=== PATIENT | male | born 1935 | race Caucasian/White ===

== ENCOUNTER → 2018-01-14 | Outpatient (CLI) | payer OTHER | LOC: FIMAGING 19:35 | PROVIDERS: ATTEND Family Medicine Sports Medicine | DX: M48.56XA Collapsed vertebra, not elsewhere classified, lumbar region, initial encounter for fracture (principal); M48.54XA Collapsed vertebra, not elsewhere classified, thoracic region, initial encounter for fracture; M48.061 Spinal stenosis, lumbar region without neurogenic claudication; M51.36 Other intervertebral disc degeneration, lumbar region; M12.88 Other specific arthropathies, not elsewhere classified, other specified site; N28.1 Cyst of kidney, acquired ==

== ENCOUNTER 2018-02-14 11:44 | Day surgery (SDC) | payer OTHER ==
[2018-02-14] MEDS ORDERED: MEPERIDINE 25 MG/ML SYR IVP PRN (13:04)
[2018-02-14] MEDS ORDERED: MIDAZOLAM 2 MG/2 ML VIAL IVP PRN (13:04)
[2018-02-14] MEDS ORDERED: FLUMAZENIL 0.5 MG/5 ML MDV IVP PRN (13:04)
[2018-02-14] MEDS ORDERED: fentaNYL 100 MCG/2 ML INJ IVP PRN (13:04)
[2018-02-14] MEDS ORDERED: NALOXONE HCL 0.4 MG/ML INJ IVP PRN (13:04)
[2018-02-14] MEDS ORDERED: NS 1,000 ML IV SCH (13:15)
--- NOTE | 2018-02-14 13:30 | PDRADPRE ---
Radiology History & Physical Indication for procedure: back pain Home medications: Calcium Carbonate [Oyster Shell Calcium 500 mg (*)] 500 mg PO DAILY 12/18/15 [ Last Taken 02/07/16] Cholecalciferol Vit D3 [Vitamin D3 (*)] 1,000 units PO DAILY 12/18/15 [Last Taken 02/07/16] Levothyroxine Sodium 88 mcg PO SUMOTUWETHFR 12/18/15 [Last Taken 02/07/16] Multivitamins [Multivitamin (*)] 1 each PO DAILY 12/18/15 [Last Taken 02/07/16] Herbals/Supplements -Info Only 1 ea PO DAILY 02/08/16 [Last Taken 02/08/16] Aspirin [Aspirin 81mg (*)] PO BID 02/12/18 [Last Taken Unknown] Cephalexin [CEPHALEXIN] PO DAILY 02/12/18 [Last Taken Unknown] Allergies/Adverse Reactions: fluorouracil [From Efudex] Allergy (Severe, Verified 02/12/18 17:40) EDEMA ON AREA APPLIED, EYES SWOLLEN Iodinated Contrast- Oral and IV Dye [IV Dye, Iodine Containing] Allergy (Severe , Verified 02/12/18 17:40) BODY RASH, ITCHING adhesive [Adhesive] Allergy (Verified 02/12/18 17:40) Rash nafcillin [Nafcillin] Allergy (Verified 02/12/18 17:40) Rash Penicillins Allergy (Verified 02/12/18 17:40) vancomycin Allergy (Verified 02/12/18 17:40) Mental status: A&Ox3 Mallampati Score: Class 1 (ASA 2)
[2018-02-14] MEDS ORDERED: TRIAMCINOLONE ACETONIDE 200 MG/5 ML MDV IM ONE (14:11)
[2018-02-14] MEDS ORDERED: ONDANSETRON 4 MG/2 ML VIAL IVP PRN (14:26)
[2018-02-14] MEDS ORDERED: ACETAMINOPHEN 325 MG TAB PO PRN (14:26)
--- NOTE | 2018-02-14 14:28 | PDRADPN ---
Radiology Procedure Note Date of Procedure: 02/14/18 Radiologist: Giana Villa Anesthesia: IV Sedation Pre-op Diagnosis: back pain Post-op Diagnosis: same Procedure: L3-L4 JUNE Inf/Abcess present in the surg proc area at time of surgery?: No
[2018-02-14] MEDS ORDERED: IOPAMIDOL (ISOVUE-M 300) 15 ML VIAL ONE (14:29)
[2018-02-14] MEDS ORDERED: LIDOCAINE 1% 300 MG/30 ML SDV ONE (14:29)
[2018-02-14 15:33] VITALS: BP 115/72
== END 2018-02-14 15:50 | disposition home or self-care (01) ==
LOC: FIMAGING 11:44
PROVIDERS: ATTEND Radiology Diagnostic Radiology
PROC: 3E0S3BZ Introduction of Anesthetic Agent into Epidural Space, Percutaneous Approach (ICD-10-PCS; principal; 2018-02-14 14:29)
PROC: BR191ZZ Fluoroscopy of Lumbar Spine using Low Osmolar Contrast (ICD-10-PCS; principal; 2018-02-14 14:29)
PROC: 3E0S33Z Introduction of Anti-inflammatory into Epidural Space, Percutaneous Approach (ICD-10-PCS; principal; 2018-02-14 14:29)
DX: M54.16 Radiculopathy, lumbar region (principal); Z91.041 Radiographic dye allergy status
CPT/HCPCS: J2250; J3010; J3301; Q9967

== ENCOUNTER 2018-09-18 11:06 | Day surgery (SDC) | payer OTHER ==
[2018-09-18] MEDS ORDERED: LIDOCAINE 1% 300 MG/30 ML SDV SC ONE (11:18)
--- NOTE | 2018-09-18 11:43 | PDGENHP ---
History & Physical Chief Complaint: ILR at EOL Relevant Physical Exam: s1s2 rrr cta Cardiorespiratory Assessment: for ILR explant
[2018-09-18] MEDS ORDERED: LIDOCAINE 1% 300 MG/30 ML SDV ONE (12:02)
--- NOTE | 2018-09-18 15:44 | EPPROC ---
Electrophysiology Procedure Note: LINQ ILR Explant Anesthesia - local only Using blunt and sharp dissection, under sterile precautions, LINQ monitor was explanted. 2 paige applied. No complications. Patient Problems: Problems Problem Status Onset Bowel obstruction Acute Cecum mass Acute Chest pain Acute
== END 2018-09-18 13:41 | disposition home or self-care (01) ==
LOC: FCATH 11:06
PROVIDERS: ATTEND Internal Medicine Cardiovascular Disease
PROC: 0JPT02Z Removal of Monitoring Device from Trunk Subcutaneous Tissue and Fascia, Open Approach (ICD-10-PCS; principal; 2018-09-18)
DX: I49.3 Ventricular premature depolarization (principal); E03.9 Hypothyroidism, unspecified; I42.9 Cardiomyopathy, unspecified; Z85.038 Personal history of other malignant neoplasm of large intestine; Z92.21 Personal history of antineoplastic chemotherapy; I50.22 Chronic systolic (congestive) heart failure; E78.5 Hyperlipidemia, unspecified; I11.0 Hypertensive heart disease with heart failure; Z79.2 Long term (current) use of antibiotics; J84.9 Interstitial pulmonary disease, unspecified; G47.33 Obstructive sleep apnea (adult) (pediatric); M81.0 Age-related osteoporosis without current pathological fracture; Z96.643 Presence of artificial hip joint, bilateral; Z88.0 Allergy status to penicillin; Z45.09 Encounter for adjustment and management of other cardiac device

== ENCOUNTER 2018-11-24 22:25 | Observation (INO) | payer OTHER ==
--- NOTE | 2018-11-24 22:45 | EDPHY ---
General - History Smoking Status: Never smoked Time Seen by Provider: 11/24/18 22:45 Narrative: CLINICAL IMPRESSION: Abdominal pain, constipation, acute urinary retention ASSESSMENT/PLAN: Patient is an 83-year-old male with a history of heart disease, hypothyroidism, macular degeneration and remote colon cancer status post resection who presents to the emergency department with complaints of constipation, abdominal pain and acute urinary retention. Patient is afebrile, he is uncomfortable appearing however not toxic-appearing. His abdomen was distended with diffuse lower abdominal tenderness to palpation, grimacing however no peritoneal signs. A bladder scan was immediately obtained and revealed 855 cc of retained urine. A Yi catheter was placed with 1000 mL of clear yellow urine. Patient reported moderate improvement of his lower abdominal discomfort after Yi placement however he still remained quite tender on exam. CBC revealed no evidence of leukocytosis, BMP grossly unremarkable. Urinalysis revealed no evidence of urinary tract infection. CT abdomen and pelvis without contrast secondary to underlying dye allergy revealed right hydronephrosis without ureteral stone, prominent stool in the rectum reflecting constipation, no other acute intra- abdominal findings. History of physical examination is consistent with lower abdominal pain, constipation and acute urinary retention which I suspect is secondary to large volume of stool. There were no findings to suggest obstruction, perforation or mass. A soap suds enema was attempted with no stool production. Manual disimpaction was attempted with moderate stool retrieval. A fleets enema was subsequently performed. We are still awaiting affects of fleets enema. Dr. Tellez evaluated this patient, she will resume care of this patient at this time, disposition pending. The patient remained hemodynamically stable, he declined any need for pain medication. DIFFERENTIAL DX: Abdominal pain including but not limited to appendicitis, cholecystitis, gastritis, constipation, bowel obstruction, mass and urinary tract infection. ED PROCEDURES: Manual disimpaction revealed firm stool in the rectal vault. I was able to break up stool and removed quite a bit. A fleets enema was immediately followed. ED COURSE: 2254: Bedside bladder scan revealed 855 cc of retained urine. 2305: A 1000 mL of clear urine. 2358: On repeat examination the patient reports that he is feeling better after Yi catheter placement. He describes his abdominal discomfort as sore in nature, declines any need for pain medication. His abdomen is soft, he is core machine tender with grimacing in the left lower quadrant. 0046: CT results reveal no retroperitoneal lymphadenopathy or free fluid. Bowel is nondilated. Sigmoid colon is redundant, there is prominent stool in the rectum. Findings are most suggestive of prominent stool in rectum reflective of constipation. There is mild right hydronephrosis noted however no stone. I suspect this was secondary to his acute urinary retention. 0155: Patient unable to have a bowel movement with soapsuds. Manual disimpaction revealed firm stool in the rectal vault, I will to break up a firm stool ball in retrieve a moderate amount. Fleets enema immediately to follow. 0240: Dr. Tellez will resume care of this patient at this time. We are still awaiting affects of fleets enema. Disposition still pending. CHIEF COMPLAINT: Abdominal pain, urinary retention and constipation HPI: Patient is an 83-year-old male with a history of heart disease, hypothyroidism, macular degeneration and colon cancer status post resection who presents to the emergency department with constipation, abdominal pain and acute urinary retention. Patient reports intermittent issues with constipation, typically will go 2 days without a bowel movement however then have no issues. He regularly takes stool softeners and MiraLax. Patient reports constipation since last Sunday, that was his last normal and large BM. Since that time the patient has had increased abdominal distention and generalized abdominal discomfort. He reports today acute urinary retention. Patient denies any fever , chest pain or shortness of breath. He has had no nausea or vomiting. He does have a history of bowel obstruction when he was 1st diagnosed with his colon cancer, he has since had a bowel resection. Patient was followed by Dr. Webster, he is currently in remission and has not required any follow-up. Last CT examination was last June with no evidence of recurrence or mets. Patient did have issues with urinary retention during hospital admission however denies any other problems with urinary retention. He denies any urinary symptoms to include dysuria, hematuria or frequency. PMH: Heart disease, hypothyroidism, macular degeneration, remote colon cancer, constipation Pertinent Past Surgical History: Colon resection Social History: Denies cigarette smoking or illicit drug use REVIEW OF SYSTEMS: All other systems negative Constitutional: No fever, no chills, appetite change. Eyes: No discharge, vision change ENT: No sore throat, congestion, ear pain. Cardiovascular: No chest pain, no palpitations. Respiratory: No cough, no shortness of breath. Gastrointestinal: Abdominal pain, abdominal distention. Constipation. Genitourinary: Acute urinary retention. No hematuria, dysuria, flank pain. Musculoskeletal: No back pain, joint swelling, joint pain, myalgias. Skin: No rashes, color change. Neurological: No headache, dizziness, weakness. PHYSICAL EXAM: General Appearance: Alert, uncomfortable appearing however not toxic-appearing. HENT: Normocephalic, atraumatic. Bilateral external ears are normal. Bilateral tympanic membranes are normal with pearly alcantara reflex. Nares are clear, mucosa is pink. Oropharynx is clear, mucosa is mildly dry, uvula is midline. There is no tonsillar enlargement or exudate. Eyes: PERRLA, EOMI. Conjunctiva pink, no pallor or injection. Neck: Supple, nontender, no lymphadenopathy, no midline pain, FROM. Respiratory: There are no retractions, lungs are clear to auscultation. Cardiac: Regular rate and rhythm, no murmurs or gallops. Gastrointestinal: Patient's abdomen is distended, there is a well-healed incision on the right mid abdomen. He has tenderness to palpation in the generalized lower abdomen with grimacing, no guarding or focal peritoneal signs. Bowel sounds are present, there are no masses or hernias appreciated. Neurological: Alert and oriented x 3, CN 2-12 grossly intact, normal gait no ataxia, DTR's intact, normal sensation and strength Skin: Warm, dry, no rashes, no nodules on palpation. Musculoskeletal: Extremities are symmetrical, full range of motion, no tenderness, deformity, swelling, or erythema. Psychiatric: Patient is oriented X 3, there is no agitation. MEDICAL DECISION MAKING: Patient was seen independently. Secondary supervising physician at time of evaluation was Dr. Tellez, she did not evaluate this patient. Diagnosis: Acute urinary retention, constipation, abdominal pain. New, requires workup Summary: See Assessment and Plan for summary of ED visit Clinical lab tests: ordered / reviewed. Independent visualization of images, tracing, or specimens: Yes. Decision to obtain medical records or history from someone other than the patient: No Review / Summarize previous medical records: Yes Discussed patient with another provider: Yes, Dr. Tellez Patient Progress: Stable, dispo pending. (Kina Troncoso) ED PA DICTATION I evaluated and participated in the management of the patient. I also evaluated the patient independently. My co-signature indicates that I have reviewed this chart and I agree with the findings and plan of care as documented. My personal H&P findings include: 83-year-old man presents with urinary retention, constipation, abdominal pain. He lives at home independently with his . Here, he is distended. Catheterization reveals about 800 mL of urine in his bladder with no signs of urinary tract infection on UA. CT scan did reveal significant constipation. We tried enema, disimpaction here without any improvement in his constipation. Patient did not feel well enough to go home after being observed here for several hours. I have consulted with the hospitalist Dr. Contreras and we will admit him for ongoing treatment of his constipation with the hopes that this will resolve his urinary retention. Patient is most comfortable with this plan. (Blanca Tellez) - Objective Vital Signs: Initial Vital Signs Temperature (C) 36.8 C 11/24/18 22:28 Heart Rate 76 11/24/18 22:28 Respiratory Rate 18 11/24/18 22:28 Blood Pressure 135/84 H 11/24/18 22:28 O2 Sat (%) 95 11/24/18 22:28 O2 Delivery Mode Room Air Allergies/Adverse Reactions: fluorouracil [From Efudex] Allergy (Severe, Verified 11/24/18 22:28) EDEMA ON AREA APPLIED, EYES SWOLLEN Iodinated Contrast- Oral and IV Dye [IV Dye, Iodine Containing] Allergy (Severe , Verified 11/24/18 22:28) BODY RASH, ITCHING adhesive [Adhesive] Allergy (Verified 11/24/18 22:28) Rash iodine Allergy (Verified 11/25/18 00:14) nafcillin [Nafcillin] Allergy (Verified 11/24/18 22:28) Rash Penicillins Allergy (Verified 11/24/18 22:28) vancomycin Allergy (Verified 11/24/18 22:28) Home Medications: Medication Instructions Recorded Calcium Carbonate [Oyster Shell 500 mg PO DAILY 12/18/15 Calcium 500 mg (*)] Cholecalciferol Vit D3 [Vitamin D3 1,000 units PO DAILY 12/18/15 (*)] Levothyroxine Sodium 88 mcg PO SUMOTUWETHFR 12/18/15 Multivitamins [Multivitamin (*)] 1 each PO DAILY 12/18/15 Herbals/Supplements -Info Only 1 ea PO DAILY 02/08/16 Aspirin [Aspirin 81mg (*)] PO BID 02/12/18 Cephalexin [CEPHALEXIN] PO DAILY 02/12/18 Laboratory Results: Laboratory Results 11/24/18 22:50 11/24/18 22:50 11/24/18 11/24/18 11/24/18 22:50 22:50 22:35 WBC 5.88 10^3/uL 10^3/uL (3.80-9.50) RBC 4.49 10^6/uL 10^6/uL (4.40-6.38) Hgb 15.0 g/dL g/dL (13.7-17.5) Hct 42.9 % % (40.0-51.0) MCV 95.5 fL fL (81.5-99.8) MCH 33.4 pg pg (27.9-34.1) MCHC 35.0 g/dL g/dL (32.4-36.7) RDW 12.3 % % (11.5-15.2) Plt Count 175 10^3/uL 10^3/uL (150-400) MPV 9.0 fL fL (8.7-11.7) Neut % (Auto) 39.3 % % (39.3-74.2) Lymph % (Auto) 24.0 % % (15.0-45.0) [place] % (Auto) 10.5 % % (4.5-13.0) Eos % (Auto) 24.1 % H % (0.6-7.6) Baso % (Auto) 1.9 % H % (0.3-1.7) Nucleat RBC Rel Count 0.0 % % (0.0-0.2) Absolute Neuts (auto) 2.31 10^3/uL 10^3/uL (1.70-6.50) Absolute Lymphs (auto) 1.41 10^3/uL 10^3/uL (1.00-3.00) Absolute Monos (auto) 0.62 10^3/uL 10^3/uL (0.30-0.80) Absolute Eos (auto) 1.42 10^3/uL H 10^3/uL (0.03-0.40) Absolute Basos (auto) 0.11 10^3/uL H 10^3/uL (0.02-0.10) Absolute Nucleated RBC 0.00 10^3/uL 10^3/uL (0-0.01) Immature Gran % 0.2 % % (0.0-1.1) Immature Gran # 0.01 10^3/uL 10^3/uL (0.00-0.10) Sodium 132 mEq/L L mEq/L (135-145) Potassium 3.9 mEq/L mEq/L (3.5-5.2) Chloride 99 mEq/L mEq/L (97-110) Carbon Dioxide 24 mEq/l mEq/l (22-31) Anion Gap 9 mEq/L mEq/L (6-14) BUN 15 mg/dL mg/dL (7-23) Creatinine 0.9 mg/dL mg/dL (0.7-1.3) Estimated GFR > 60 Glucose 95 mg/dL mg/dL (70-100) Calcium 9.6 mg/dL mg/dL (8.5-10.4) Total Bilirubin 0.4 mg/dL mg/dL (0.1-1.4) Conjugated Bilirubin 0.1 mg/dL mg/dL (0.0-0.5) Unconjugated Bilirubin 0.3 mg/dL mg/dL (0.0-1.1) AST 33 IU/L IU/L (17-59) ALT 36 IU/L IU/L (21-72) Alkaline Phosphatase 91 IU/L IU/L (38-126) Total Protein 7.2 g/dL g/dL (6.3-8.2) Albumin 4.2 g/dL g/dL (3.5-5.0) Lipase 54 IU/L IU/L (23-300) Urine Color YELLOW Urine Appearance CLEAR Urine pH 7.0 (5.0-7.5) Ur Specific [place] 1.008 (1.002-1.030) Urine Protein NEGATIVE (NEGATIVE) Urine Ketones NEGATIVE (NEGATIVE) Urine Blood NEGATIVE (NEGATIVE) Urine Nitrate NEGATIVE (NEGATIVE) Urine Bilirubin NEGATIVE (NEGATIVE) Urine Urobilinogen NEGATIVE EU EU (0.2-1.0) Ur Leukocyte Esterase NEGATIVE (NEGATIVE) Urine Glucose NEGATIVE (NEGATIVE) Departure - Departure Disposition: [facility] Inpatient Acute Clinical Impression: Acute urinary retention Constipation Qualifiers: Constipation type: unspecified constipation type Qualified Code(s): K59.00 - Constipation, unspecified Abdominal pain Qualifiers: Abdominal location: lower abdomen, unspecified Qualified Code(s): R10.30 - Lower abdominal pain, unspecified
[2018-11-24 23:00] LABS: PLATELET COUNT 175 10^3/uL (150-400)
[2018-11-25] MEDS ORDERED: ONDANSETRON DISINTEGRATING 4 MG TAB PO PRN (04:03)
[2018-11-25] MEDS ORDERED: ACETAMINOPHEN 325 MG TAB PO PRN (04:03)
[2018-11-25] MEDS ORDERED: ONDANSETRON 4 MG/2 ML VIAL IVP PRN (04:03)
[2018-11-25] MEDS ORDERED: NS 1,000 ML IV SCH (04:15)
[2018-11-25] MEDS ORDERED: BISACODYL 10 MG SUPP PR PRN (06:47)
[2018-11-25] MEDS ORDERED: LACTULOSE 20 GM/30 ML UDCUP PO PRN (06:47)
[2018-11-25] MEDS ORDERED: MAGNESIUM HYDROXIDE 30 ML UDCUP PO PRN (06:47)
[2018-11-25] MEDS ORDERED: POLYETHYLENE GLYCOL 3350 17 GM PKT PO PRN (06:47)
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
[2018-11-25] MEDS: PSYLLIUM METAMUCIL 1 PKT PO SCH (09:19)
[2018-11-25] MEDS: SENNOSIDES/DOCUSATE SODIUM TAB PO SCH ×2 (09:20→21:59)
--- NOTE | 2018-11-25 12:20 | HOSPPROG ---
Hospitalist Progress Note Assessment/Plan: Mr Manriquez is an 83 y/o male who presented w acute urinary retention and abdominal pain. Last bowel movement 5 days ago. First encounter, chart reviewed. *urinary retention -miguel placed -will do a trial of miguel removal today *severe constipation -resolved, had multiple large bowel movements today *chronic bilateral nonobstructive nephrolithiasis -r severe hydronephrosis and mild hydroureter -should of improve w miguel placed *abdominal pain 2/2 constipation -resolved *hyponatremia *hypothyroidism -resume Synthroid *emphysema w findings suspicious for UIP *plan: miguel removal, >30 minutes f/u and reviewed Chuck's care. DC fluids. Subjective: Sergio is feeling much better, eating lunch. No abdominal pain. Objective: Vital Signs Temp Pulse Resp BP Pulse Ox 36.3 C 74 16 105/73 90 L 11/25/18 11:45 11/25/18 11:45 11/25/18 11:45 11/25/18 11:45 11/25/18 11:45 11/24/18 11/25/18 11/26/18 05:59 05:59 05:59 Output Total 780 1100 Balance -780 -1100 - Physical Exam Constitutional: no apparent distress, appears nourished Eyes: PERRL Ears, Nose, Mouth, Throat: hard of hearing Respiratory: no respiratory distress Genitourinary: miguel in urethra Skin: warm Neurologic: AAOx3 Psychiatric: interacting appropriately ICD10 Worksheet Patient Problems: Problems Problem Status Onset Abdominal pain Acute Acute urinary retention Acute Constipation Acute Bowel obstruction Acute Cecum mass Acute Chest pain Acute
[2018-11-25] MEDS: ASPIRIN 81 MG CHEWABLE TAB PO SCH (16:06)
[2018-11-25] MEDS: LEVOTHYROXINE 88 MCG TAB PO SCH (16:06)
[2018-11-26] MEDS: LEVOTHYROXINE 88 MCG TAB PO SCH (06:03)
[2018-11-26] MEDS ORDERED: PRESERVISION AREDS2 FORMULA EYE VIT 1 EACH PO SCH (09:00)
[2018-11-26] MEDS ORDERED: CEPHALEXIN 250 MG CAP PO SCH (09:00)
[2018-11-26] MEDS ORDERED: MULTIVITAMINS 1 EACH TAB PO SCH (09:00)
[2018-11-26] MEDS ORDERED: CALCIUM CARBONATE 500 MG TAB PO SCH (09:00)
[2018-11-26] MEDS ORDERED: CHOLECALCIFEROL VIT D3 1,000 UNITS TAB PO SCH (09:00)
[2018-11-26] MEDS: ASPIRIN 81 MG CHEWABLE TAB PO SCH (09:20)
[2018-11-26] MEDS: SENNOSIDES/DOCUSATE SODIUM TAB PO SCH (09:22)
[2018-11-26] MEDS: PSYLLIUM METAMUCIL 1 PKT PO SCH (09:22)
--- NOTE | 2018-11-26 12:11 | ASMTCMCOM ---
CM Note CM Note Notes: Spoke with pt's RN and conducted chart review. Pt admitted for urinary retention, constipation and abdominal pain. Pt no longer has constipation and miguel was removed yesterday. Therapies are pending. Pt is and lives with his . RN reports pt is a little unsteady on his feet. CM to follow. D/C Plan: TBD Date Signed: 11/26/2018 12:10 PM Electronically Signed By:Tamiko Bragg
[2018-11-26 12:48] VITALS: BP 106/58
--- NOTE | 2018-11-26 14:46 | HOSPPROG ---
Hospitalist Progress Note Assessment/Plan: Mr Manriquez is an 83 y/o male who presented w acute urinary retention and abdominal pain. Last bowel movement 5 days ago. First encounter, chart reviewed. 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 home today pcp follow up Subjective: anxious for discharge Objective: Vital Signs Temp Pulse Resp BP Pulse Ox 36.5 C 66 18 106/58 L 91 L 11/26/18 12:00 11/26/18 12:00 11/26/18 12:00 11/26/18 12:00 11/26/18 12:00 11/25/18 11/26/18 11/27/18 05:59 05:59 05:59 Intake Total 1080 Output Total 780 2200 1 Balance -780 -1120 -1 - Physical Exam Constitutional: no apparent distress, appears nourished Eyes: PERRL, anicteric sclera Ears, Nose, Mouth, Throat: moist mucous membranes, hearing normal Cardiovascular: regular rate and rhythym, no murmur, rub, or gallop Respiratory: no respiratory distress, no rales or rhonchi Gastrointestinal: normoactive bowel sounds, soft, non-tender abdomen Genitourinary: no bladder fullness, No miguel in urethra Skin: warm, normal color Musculoskeletal: full muscle strength Neurologic: AAOx3 ICD10 Worksheet Patient Problems: Problems Problem Status Onset Abdominal pain Acute Acute urinary retention Acute Constipation Acute Bowel obstruction Acute Cecum mass Acute Chest pain Acute
--- NOTE | 2018-11-26 14:51 | PDIAF ---
- Diagnosis Diagnosis: constipation Code Status: Do Not Resuscitate - Medication Management Additional Medication Instructions: 1. follow up with Dr Quinones's office by next week for repeat labs and ultrasound Discharge Medications: electronically signed and located in the Home Medication List. - Orders Services needed: Home Penitentiary Care Face to Face: I certify that this patient was under my care and that I had the required [id number] encounter meeting the encounter requirements on the discharge day. My findings support the fact that the patient is homebound as defined in Home Care Face to Face Continued: CMS Chapter 7 Medicare Benefits Manual 30.1.1 , The condition of the patient is such that there exists a normal inability to leave home and consequently, leaving home would require a considerable and taxing effort. Isolation Type: None - Follow Up Care Current Providers and Referrals: Jose Quinones MD [Primary Care Provider] - As per Instructions
--- NOTE | 2018-11-26 15:23 | ASDISCHSUM ---
Discharge Information Plan Status:Home with Home Health Medically Cleared to Leave:11/26/2018 Discharge Date:11/26/2018 CM D/C Disposition:Home Health Service ADT D/C Disposition: Projected Discharge Date:11/26/2018 11:00 AM Transportation at D/C:Family Discharge Delay Reason: Follow-Up Date:11/26/2018 11:00 AM Discharge Slot: Final Diagnosis:urinary retention, constipation Placement Information Referral Type:*Home Health Care Services Referral ID:[id number] Provider Name:[facility] Address 1:[address] [place] [address] Address 2: City:[place] Selection Factors: State:[place] Patient Contact Information Contact Name:DAISY Relationship: Address:[address] City:[place] Alternate Phone: State/Zip Code:[place] [address] Email: Financial Information Financial Class:Medicare [place] Primary Plan Desc:[facility] [employer] Primary Plan Number:[id number] Secondary Plan Desc: Secondary Plan Number: Assessment Information [facility] CM Progress Note CM Note CM Note Notes: Spoke with pt's RN and conducted chart review. Pt admitted for urinary retention, constipation and abdominal pain. Pt no longer has constipation and miguel was removed yesterday. Therapies are pending. Pt is and lives with his . RN reports pt is a little unsteady on his feet. CM to follow. D/C Plan: TBD Date Signed: 11/26/2018 12:10 PM Electronically Signed By:Tamiko Bragg Case Management Discharge Plan Note Case Management Discharge Discharge Order Complete? Answers: Yes Patient to Obtain Answers: via Family Medications Transportation Arranged Answers: Family/Friends Transport will Pick (Date 11/26/2018 12:00 AM & Time) Faxed Final Orders Answers: Yes Agency/Facility Transfer Answers: Yes Report Printed & Faxed to Receiving Agency Family Notified Answers: Yes Notes: by pt Discharge Comments Notes: Pt to discharge this afternoon with home health care from [facility]. Pt is aware [facility] will be in touch to make first appointment which will likely be on of this week. Pt's PCP, address and phone number confirmed in the chart. No further CM needs noted at this time. Date Signed: 11/26/2018 03:22 PM Electronically Signed By:Tamiko Bragg Intervention Information Intervention Type:*Incorrect Registration Date of Service:11/25/2018 10:32 AM Patient Type:Inpatient Staff Member:Radha Wagner Hours: Discipline: Severity: Comment:
--- NOTE | 2018-11-26 15:24 | ASMTLACE ---
LACE Length of stay for Answers: 1 day current admission Acuity / Level of Answers: No Care: Did the patient have an inpatient admission? Comorbidities - select Answers: Coronary Artery Disease all that apply Opioid dependence / Chronic pain Other Notes: Hypothyroid; Hx of colo n cancer # of Emergency department Answers: 1-2 visits in the last 6 months Score: 9 Date Signed: 11/26/2018 03:23 PM Electronically Signed By:Tamiko Bragg
--- NOTE | 2018-11-26 19:23 | GDS ---
[f rep st] DISCHARGE SUMMARY DISCHARGE DIAGNOSES: 1. Severe constipation. 2. Urinary retention, now resolved. 3. Right hydroureter and hydronephrosis. 4. Coronary artery disease. 5. History of colon cancer. Please see admission history and physical by Dr. Keyla Contreras. The patient presented with abdominal pain. Constipation seen on CT. After some manual disimpaction and bowel medicines, the patient move d his bowels and felt well and Yi was placed with good urine output and then removed without diffi culty. His renal function was intact on presentation. He was seen by Physical and occupational therapy department chair apy who felt the patient was safe for home with home care. Regarding his right hydronephrosis, it is not clear what is causing this. There is no visible obstru ction seen. I discussed with his primary care physician on coverage (because Dr. Quinones is out of to ) and they are going to schedule a repeat ultrasound and labs within the next week and they were go ing to contact the patient regarding this. No medication changes other than the additional over-the- counter MiraLAX and senna. /[id number]/MODL
== END 2018-11-26 15:52 | disposition home or self-care (01) ==
LOC: INTOOBSV 11-25 03:59 → F3N 11-25 06:00
PROVIDERS: ADMIT Family Medicine; ATTEND Internal Medicine
PROC: 4A0D7LZ Measurement of Urinary Volume, Via Natural or Artificial Opening (ICD-10-PCS; principal; 2018-11-25)
DX: K59.00 Constipation, unspecified (principal); R33.9 Retention of urine, unspecified; E87.1 Hypo-osmolality and hyponatremia; N20.0 Calculus of kidney; J43.9 Emphysema, unspecified; I25.10 Atherosclerotic heart disease of native coronary artery without angina pectoris; E03.9 Hypothyroidism, unspecified; H35.30 Unspecified macular degeneration; Z85.038 Personal history of other malignant neoplasm of large intestine; Z90.49 Acquired absence of other specified parts of digestive tract; Z91.041 Radiographic dye allergy status
CPT/HCPCS: 51798; 74176; 92523; 97116; 97161; 97165; 97535; 99285; G0378

== ENCOUNTER → 2018-11-29 | Outpatient (CLI) | payer OTHER | LOC: FIMAGING 15:07 | PROVIDERS: ATTEND Physician Assistant Medical | DX: N13.2 Hydronephrosis with renal and ureteral calculous obstruction (principal); R33.9 Retention of urine, unspecified ==

== ENCOUNTER 2018-12-06 08:48 | Observation (INO) | payer OTHER ==
[2018-12-06 10:06] LABS: PLATELET COUNT 164 10^3/uL (150-400)
[2018-12-06] MEDS ORDERED: LIDOCAINE 2% JELLY 20 ML (UROJECT) ONE (10:30)
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
[2018-12-06] MEDS ORDERED: ONDANSETRON 4 MG/2 ML VIAL IVP PRN (15:40)
[2018-12-06] MEDS ORDERED: ONDANSETRON DISINTEGRATING 4 MG TAB PO PRN (15:40)
[2018-12-06] MEDS ORDERED: ACETAMINOPHEN 325 MG TAB PO PRN (15:40)
[2018-12-06] MEDS ORDERED: NS 1,000 ML IV SCH (15:45)
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
--- NOTE | 2018-12-06 15:57 | CPEKG ---
Test Reason : OPEN Blood Pressure : / mmHG Vent. Rate : 077 BPM Atrial Rate : 078 BPM P-R Int : 189 ms QRS Dur : 143 ms QT Int : 408 ms P-R-T Axes : -11 -47 064 degrees QTc Int : 462 ms Sinus rhythm Left bundle branch block Confirmed by Marcelo Stacy ([id number]) on 12/06/2018 3:56:54 PM Referred By: MARCELO STACY Confirmed By:Marcelo Stacy
--- NOTE | 2018-12-06 16:08 | ASMTCMCOM ---
CM Note CM Note Notes: CM reviewed pts chart. Pt is a 83 y/o man admitted for weakness. CM met w/ pt and introduced self. Pt lives independently in a [place] called [facility]. Pt clarified and stated that he doesn't live at the long-term facility [facility]. Pt reported that he was getting around independently prior to this hospitalization. Therapies are pending and awaiting recommendations. CM provided pt w/ senior blue book. CM offered to call his Hanh but he stated he will speak to her himself. CM to follow. Plan: TBD Date Signed: 12/06/2018 04:07 PM Electronically Signed By:ORESTES Villarreal
[2018-12-06] MEDS: BENZONATATE 100 MG CAP PO PRN (17:05)
[2018-12-06] MEDS: POLYETHYLENE GLYCOL 3350 17 GM PKT PO SCH (20:33)
[2018-12-06] MEDS: TRIAMCINOLONE 0.025% 15 GM CRTUBE TP SCH (20:34)
[2018-12-07] MEDS: BENZONATATE 100 MG CAP PO PRN (04:31)
[2018-12-07] MEDS: LEVOTHYROXINE 88 MCG TAB PO SCH (04:31)
[2018-12-07 04:34] LABS: PLATELET COUNT 147 10^3/uL (150-400)
[2018-12-07] MEDS: CHOLECALCIFEROL VIT D3 1,000 UNITS TAB PO SCH (08:38)
[2018-12-07] MEDS: PRESERVISION AREDS2 FORMULA EYE VIT 1 EACH PO SCH (08:38)
[2018-12-07] MEDS: ASPIRIN 81 MG CHEWABLE TAB PO SCH (08:38)
[2018-12-07] MEDS: ENOXAPARIN 40 MG/0.4 ML SYR SC SCH (08:39)
[2018-12-07] MEDS: POLYETHYLENE GLYCOL 3350 17 GM PKT PO SCH ×2 (08:39→21:23)
[2018-12-07] MEDS: TRIAMCINOLONE 0.025% 15 GM CRTUBE TP SCH ×2 (08:44→21:25)
[2018-12-07] MEDS ORDERED: MAGNESIUM HYDROXIDE 30 ML UDCUP PO PRN (11:08)
[2018-12-07] MEDS ORDERED: BISACODYL 10 MG SUPP PR PRN (11:08)
[2018-12-07] MEDS ORDERED: BISACODYL 10 MG SUPP PR ONE (11:10)
[2018-12-07] MEDS ORDERED: CALCIUM CARBONATE 500 MG TAB PO SCH (12:00)
--- NOTE | 2018-12-07 12:11 | SOAPPROG ---
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 Pt is DNR and consider management with miguel--see in office after DC for cysto Plan: as noted 12/07/18 12:08 Subjective: in hospital for weakness Objective: Vital Signs Temp Pulse Resp BP Pulse Ox 36.7 C 88 12 108/65 93 12/07/18 08:55 12/07/18 08:55 12/07/18 08:55 12/07/18 08:55 12/07/18 08:55 Laboratory Results 12/07/18 03:53 12/07/18 03:53 12/06/18 12/07/18 12/08/18 05:59 05:59 05:59 Intake Total 300 Output Total 1420 800 Balance -1120 -800 Physical Exam - Physical Exam General Appearance: no apparent distress Neck: supple Respiratory: No respiratory distress Abdomen: soft Male Genitalia: other (cath) Rectal: deferred Back: No CVA tenderness Skin: warm/dry Extremities: No calf tenderness Neuro/Psych: no motor/sensory deficits ICD10 Worksheet Patient Problems: Problems Problem Status Onset Hydronephrosis of right kidney Acute Urinary incontinence Acute Weakness Acute Abdominal pain Acute Acute urinary retention Acute Bowel obstruction Acute Cecum mass Acute Chest pain Acute Constipation Acute - ICD10 Problem Qualifiers (1) Hydronephrosis of right kidney
--- NOTE | 2018-12-07 12:36 | HOSPPROG ---
Hospitalist Progress Note Assessment/Plan: 83 yo male admitted with generalized weakness #Urinary retention -Yi placed and draining -Urology: cont Yi. F/u with Urology as an op -Flomax #Acute Encephalopathy -likely metabolic -appears resolved today #Generalized weakness -no focal weakness -etiology is likely multifactorial -PT/OT eval pending. 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 no n/v Objective: Vital Signs Temp Pulse Resp BP Pulse Ox 36.7 C 88 12 108/65 93 12/07/18 08:55 12/07/18 08:55 12/07/18 08:55 12/07/18 08:55 12/07/18 08:55 Laboratory Results 12/07/18 03:53 12/07/18 03:53 12/06/18 12/07/18 12/08/18 05:59 05:59 05:59 Intake Total 300 Output Total 1420 800 Balance -1120 -800 - Physical Exam Constitutional: no apparent distress, chronically ill appearing Eyes: PERRL Ears, Nose, Mouth, Throat: moist mucous membranes, hearing normal, ears appear normal Cardiovascular: regular rate and rhythym, no murmur, rub, or gallop, No edema Respiratory: no respiratory distress, no rales or rhonchi, clear to auscultation Gastrointestinal: normoactive bowel sounds Skin: warm Musculoskeletal: generalized weakness Neurologic: AAOx3 Psychiatric: interacting appropriately, not anxious, not encephalopathic Lymph, Heme, Immunologic: No petechiae ICD10 Worksheet Patient Problems: Problems Problem Status Onset Hydronephrosis of right kidney Acute Urinary incontinence Acute Weakness Acute Abdominal pain Acute Acute urinary retention Acute Bowel obstruction Acute Cecum mass Acute Chest pain Acute Constipation Acute
[2018-12-07] MEDS: TAMSULOSIN HCL 0.4 MG CAP PO SCH (13:30)
[2018-12-07] MEDS ORDERED: KETOROLAC 15 MG/1 ML SDV IVP ONE ×2 (18:44→21:30)
[2018-12-08] MEDS: ENOXAPARIN 40 MG/0.4 ML SYR SC SCH (09:22)
[2018-12-08] MEDS: POLYETHYLENE GLYCOL 3350 17 GM PKT PO SCH (09:22)
[2018-12-08] MEDS: CHOLECALCIFEROL VIT D3 1,000 UNITS TAB PO SCH (09:22)
[2018-12-08] MEDS: TAMSULOSIN HCL 0.4 MG CAP PO SCH (09:23)
[2018-12-08] MEDS: PRESERVISION AREDS2 FORMULA EYE VIT 1 EACH PO SCH (09:23)
[2018-12-08] MEDS: ASPIRIN 81 MG CHEWABLE TAB PO SCH (09:23)
[2018-12-08] MEDS: LEVOTHYROXINE 88 MCG TAB PO SCH (11:18)
[2018-12-08 11:21] VITALS: BP 98/63
--- NOTE | 2018-12-08 11:25 | PDDCSUM ---
Discharge Summary Discharge Summary: 83 yo male admitted with generalized weakness, urinary retention, and constipation. Now better. See below. The plan is for d/c home with [facility] DDx: #Urinary retention -Yi placed and draining -Urology: cont Yi. F/u with Urology (Dr. Case) this week. -Flomax was started #Acute Encephalopathy -likely metabolic -resolved #Generalized weakness -no focal weakness -etiology is likely multifactorial -PT/OT eval pending. recommendation is for [facility]. 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
--- NOTE | 2018-12-08 11:25 | PDIAF ---
- Diagnosis Diagnosis: WEAKNESS Code Status: Do Not Resuscitate - Medication Management Discharge Medications: electronically signed and located in the Home Medication List. - Orders Services needed: Home Care, Physical Therapy, Occupational Therapy Home Care Face to Face: I certify that this patient was under my care and that I had the required [id number] encounter meeting the encounter requirements on the discharge day. My findings support the fact that the patient is homebound as defined in Home Care Face to Face Continued: CMS Chapter 7 Medicare Benefits Manual 30.1.1 , The condition of the patient is such that there exists a normal inability to leave home and consequently, leaving home would require a considerable and taxing effort. Isolation Type: None Diet Recommendation: no restrictions on diet Diet Texture: Regular Texture Diet Additional Instructions: Activity: As tolerated F/U: with PCP next week. Please call Dr. Perez office tomorrow to obtain an appointment - Follow Up Care Current Providers and Referrals: Dae Rosas MD [Primary Care Provider] - As per Instructions
--- NOTE | 2018-12-08 11:43 | ASMTCMCOM ---
CM Note CM Note Notes: Met with Pt and . Pt is discharged home with [facility] Shae (BC) notified of discharge. Pt wants to go home and does not want SNF. states she will look after him. CM available for needs.. PLAN: HOME with [facility] who is current with him. Date Signed: 12/08/2018 11:42 AM Electronically Signed By:Kenia Lynne
--- NOTE | 2018-12-08 11:44 | ASMTLACE ---
[facility] Length of stay for Answers: 2 days current admission Acuity / Level of Answers: Yes Care: Did the patient have an inpatient admission? Comorbidities - select Answers: Coronary Artery Disease all that apply History of falls # of Emergency department Answers: 1-2 visits in the last 6 months Score: 11 Date Signed: 12/08/2018 11:43 AM Electronically Signed By:Kenia Lynne
[2018-12-08] MEDS: TRIAMCINOLONE 0.025% 15 GM CRTUBE TP SCH (11:53)
== END 2018-12-08 12:09 | disposition home health service (06) ==
LOC: INTOOBSV 12:37 → F1N 13:55
PROVIDERS: ADMIT Family Medicine; ATTEND Family Medicine
PROC: 0T9B70Z Drainage of Bladder with Drainage Device, Via Natural or Artificial Opening (ICD-10-PCS; principal; 2018-12-06)
DX: R33.9 Retention of urine, unspecified (principal); G93.40 Encephalopathy, unspecified; R53.83 Other fatigue; E87.1 Hypo-osmolality and hyponatremia; K59.00 Constipation, unspecified; R62.7 Adult failure to thrive
CPT/HCPCS: 51702; 51798; 71045; 74018; 93005; 96372; 96374; 97116; 97161; 97165; 99285; G0378; J1650; J1885